=== PATIENT | male | born 1985 | race Caucasian/White ===

== ENCOUNTER 2019-06-22 14:48 | Inpatient (IN) | payer OTHER ==
[2019-06-22 16:38] VITALS: BMI 23.8
--- NOTE | 2019-06-22 18:29 | HP ---
CIWA Score Nausea/Vomitin-No Nausea/No Vomiting Muscle Tremors: 4-Moderate,w/Arms Extend Anxiety: 3 Agitation: 3 Paroxysmal Sweats: No Perspiration Orientation: 2-Disoriented Date<2 days Tacttile Disturbances: 0-None Auditory Disturbances: 0-None Visual Disturbances: 0-None Headache: 0-None Present CIWA-Ar Total Score: 12 - Admission Criteria OASAS Guidelines: Admission for Medically Managed Detox: Requires at least one of the followin. CIWA greater than 12 2. Seizures within the past 24 hours 3. Delirium tremens within the past 24 hours 4. Hallucinations within the past 24 hours 5. Acute intervention needed for co occurring medical disorder 6. Acute intervention needed for co occurring psychiatric disorder 7. Severe withdrawal that cannot be handled at a lower level of care (continued vomiting, continued diarrhea, abnormal vital signs) requiring intravenous medication and/or fluids 8. Admission ROS S - HPI Allergies/Adverse Reactions: Allergies Allergy/AdvReac Type Severity Reaction Status Date / Time No Known Allergies Allergy Verified 06/22/19 16:31 History of Present Illness: pt here requesting detox from etoh use , reports 1 bottle of vodka/day x 1 year , denies seizures, + tremors, + blackouts , latest use yesterday . pmhx : denies psych : denies SI / HI Exam Limitations: Clinical Condition - Ebola screening Have you traveled outside of the country in the last 21 days: No (N) Have you had contact with anyone from an Ebola affected area: No Do you have a fever: No - Review of Systems Constitutional: No Symptoms Reported EENT: reports: No Symptoms Reported Respiratory: reports: No Symptoms reported Cardiac: reports: No Symptoms Reported GI: reports: No Symptoms Reported : reports: No Symptoms Reported Musculoskeletal: reports: Other (reports injuries s/p falls , [place] w/ injury to right leg .) Integumentary: reports: See HPI, Other (bruising from falls.) Neuro: reports: Numbness (right Vth finger from remote injury - hit wall w/ elbow and has been having numbness since.), Paresthesia (r Vth finger), Tingling, Tremors, Unsteady Gait, Ataxia, Dizziness Endocrine: reports: No Symptoms Reported Hematology: reports: No Symptoms Reported Psychiatric: reports: Agitated, Anxious, Disorientated Patient History - Smoking Cessation Smoking history: Current every day smoker (vaping) Have you smoked in the past 12 months: Yes Hx Chewing Tobacco Use: No Initiated information on smoking cessation: No - Substances abused Alcohol Substance route: Oral Frequency: Daily Amount used: 1 liter of vodka Age of first use: 32 Date of last use: 06/21/19 Admission Physical Exam [facility] - Vital Signs Vital Signs: Vital Signs - 24 hr 06/22/19 16:31 Temperature 97.4 F L Pulse Rate 82 Respiratory 16 Rate Blood Pressure 146/85 - Physical General Appearance: Yes: Mild Distress, Anxious HEENTM: Yes: EOMI, Hearing grossly Normal, Normocephalic, Normal Voice Respiratory: Yes: Chest Non-Tender, Lungs Clear, Normal Breath Sounds, No Respiratory Distress, No Accessory Muscle Use Neck: Yes: No masses,lesions,Nodules, Trachea in good position Cardiology: Yes: Regular Rhythm, Regular Rate, S1, S2 Abdominal: Yes: Non Tender, Soft Musculoskeletal: Yes: Other (unsteady gait.) Extremities: Yes: Normal Range of Motion, Non-Tender, Tremors Neurological: Yes: Alert, Normal Mood/Affect, Confused Integumentary: Yes: Warm, Other (superficial excoriation right knee , right pretibially) - Diagnostic (1) Alcohol use disorder Current Visit: Yes Status: Chronic Breathalyzer - Breathalyzer Breathalyzer: 0.006 Urine Drug Screen - Test Device Lot number: [id number] Expiration date: 09/01/20 - Control Is test valid?: Yes - Results Drug screen NEGATIVE: No Urine drug screen results: BZO-Benzodiazepines Inpatient Rehab Admission - Rehab Decision to Admit Inpatient rehab admission?: No
[2019-06-22] MEDS ORDERED: ACETAMINOPHEN 325 MG TABLET (FP) PO PRN ×2 (18:34)
[2019-06-22] MEDS ORDERED: BISMUTH SUBSALICYLATE 524 MG/30 ML UD PO PRN (18:34)
[2019-06-22] MEDS ORDERED: MAG HYDROX/AL HYDROX/SIMETH 30 ML UNIT-DOSE CUP PO PRN (18:34)
[2019-06-22] MEDS ORDERED: MAGNESIUM HYDROX 2400MG/30ML ORAL SUSPENSION 30 ML CUP PO PRN (18:34)
[2019-06-22] MEDS ORDERED: MAGNESIUM CITRATE 300 ML BOTTLE PO PRN (18:34)
[2019-06-22] MEDS ORDERED: METHOCARBAMOL 500 MG TABLET PO PRN (18:34)
[2019-06-22] MEDS ORDERED: hydrOXYzine PAMOATE 25 MG CAPSULE (FP) PO PRN (18:34)
[2019-06-22] MEDS ORDERED: MENTHOL/PHENOL 1 EACH UD MM PRN (18:34)
[2019-06-22] MEDS ORDERED: IBUPROFEN 400 MG TABLET (FP) PO PRN (18:34)
[2019-06-22] MEDS ORDERED: chlordiazePOXIDE HCL 10 MG CAPSULE PO PRN (18:35)
[2019-06-22] MEDS ORDERED: chlordiazePOXIDE HCL 25 MG CAPSULE PO ONE (18:45)
[2019-06-22] MEDS: THIAMINE HCL 100 MG TABLET (FP) PO SCH (22:31)
[2019-06-22] MEDS: chlordiazePOXIDE HCL 25 MG CAPSULE PO SCH (22:31)
[2019-06-22] MEDS: MELATONIN 5 MG TABLETS PO PRN (22:32)
[2019-06-23] MEDS: chlordiazePOXIDE HCL 25 MG CAPSULE PO SCH ×3 (06:12→21:22)
[2019-06-23] MEDS: PRENATAL VITAMINS W/ FOLIC ACID TABLET (FP) PO SCH (10:15)
[2019-06-23 12:30] LABS: BILIRUBIN,TOTAL 0.8 mg/dL (0.2-1); BLOOD UREA NITROGEN 10.7 mg/dL (7-18); CALCIUM 9.5 mg/dL (8.5-10.1); CREATININE 0.8 mg/dL (0.55-1.3); POTASSIUM 3.6 mmol/L (3.5-5.1); TOT PROT 7.2 g/dl (6.4-8.2)
[2019-06-23 12:33] LABS: HEMATOCRIT 39.6 % (35.4-49); HEMOGLOBIN 13.6 GM/dL (11.7-16.9); MCH 31.9 pg (25.7-33.7); MCHC 34.2 g/dl (32.0-35.9); MEAN CELL VOLUME 93.4 fl (80-96); MEAN PLT VOLUME 8.9 fl (7.5-11.1); PLATELET COUNT 220 K/MM3 (134-434); RBC 4.25 M/mm3 (4.00-5.60); WHITE BLOOD COUNT 4.2 K/mm3 (4.0-10.0)
--- NOTE | 2019-06-23 13:13 | PN ---
[facility] CIWA - CIWA Score Nausea/Vomitin-No Nausea/No Vomiting Muscle Tremors: 3 Anxiety: 2 Agitation: 1-Slight > Activity Paroxysmal Sweats: 2 Orientation: 0-Oriented Tacttile Disturbances: 0-None Auditory Disturbances: 0-None Visual Disturbances: 1-Very Mild Sensitivity Headache: 1-Very Mild CIWA-Ar Total Score: 10 S Progress Note (SOAP) Subjective: 33 years old male admitted on 06/22/19 for alcohol withdrawal sx management treating wtih librium detox regimen feeling ok today ambulating on hallway ate breakfast and lunch in day room social with peers in day room Objective: 06/23/19 13:11 Vital Signs Temperature 96.7 F L 06/23/19 09:17 Pulse Rate 70 06/23/19 09:17 Respiratory Rate 18 06/23/19 09:17 Blood Pressure 127/90 06/23/19 09:17 O2 Sat by Pulse Oximetry (%) Laboratory Last Values WBC 4.2 K/mm3 (4.0-10.0) 06/23/19 07:25 RBC 4.25 M/mm3 (4.00-5.60) 06/23/19 07:25 Hgb 13.6 GM/dL (11.7-16.9) 06/23/19 07:25 Hct 39.6 % (35.4-49) 06/23/19 07:25 MCV 93.4 fl (80-96) 06/23/19 07:25 MCH 31.9 pg (25.7-33.7) 06/23/19 07:25 MCHC 34.2 g/dl (32.0-35.9) 06/23/19 07:25 RDW 13.0 % (11.9-15.9) 06/23/19 07:25 Plt Count 220 K/MM3 (134-434) 06/23/19 07:25 MPV 8.9 fl (7.5-11.1) 06/23/19 07:25 Sodium 142 mmol/L (136-145) 06/23/19 07:25 Potassium 3.6 mmol/L (3.5-5.1) 06/23/19 07:25 Chloride 105 mmol/L (98-107) 06/23/19 07:25 Carbon Dioxide 29 mmol/L (21-32) 06/23/19 07:25 Anion Gap 7 MMOL/L (8-16) L 06/23/19 07:25 BUN 10.7 mg/dL (7-18) 06/23/19 07:25 Creatinine 0.8 mg/dL (0.55-1.3) 06/23/19 07:25 Est GFR (CKD-EPI)AfAm 136.99 06/23/19 07:25 Est GFR (CKD-EPI)NonAf 118.20 06/23/19 07:25 Random Glucose 91 mg/dL (74-106) 06/23/19 07:25 Calcium 9.5 mg/dL (8.5-10.1) 06/23/19 07:25 Total Bilirubin 0.8 mg/dL (0.2-1) 06/23/19 07:25 AST 112 U/L (15-37) H 06/23/19 07:25 ALT 149 U/L (13-61) H 06/23/19 07:25 Alkaline Phosphatase 105 U/L (45-117) 06/23/19 07:25 Total Protein 7.2 g/dl (6.4-8.2) 06/23/19 07:25 Albumin 4.0 g/dl (3.4-5.0) 06/23/19 07:25 RPR Titer Nonreactive (NONREACTIVE) 06/23/19 07:25 lab noted ast elevation repeat ast 06/23/19 13:12 patient agrees to consider ativan detox regimen Assessment: 06/23/19 13:13 alcohol withdrawal Plan: librium regimen health teaching on alcohol related ast elevation
[2019-06-23] MEDS: THIAMINE HCL 100 MG TABLET (FP) PO SCH (21:22)
[2019-06-23] MEDS: MELATONIN 5 MG TABLETS PO PRN (21:23)
[2019-06-24] MEDS: chlordiazePOXIDE 5 MG CAPSULE PO SCH ×3 (05:20→22:09)
[2019-06-24] MEDS: PRENATAL VITAMINS W/ FOLIC ACID TABLET (FP) PO SCH (10:02)
[2019-06-24] MEDS ORDERED: chlordiazePOXIDE HCL 10 MG CAPSULE PO PRN (13:11)
--- NOTE | 2019-06-24 13:15 | PN ---
[facility] CIWA - CIWA Score Nausea/Vomitin-No Nausea/No Vomiting Muscle Tremors: 1-None Visible, but [place] Anxiety: 1-Mildly Anxious Agitation: 1-Slight > Activity Paroxysmal Sweats: 1-Minimal Palms Moist Orientation: 0-Oriented Tacttile Disturbances: 0-None Auditory Disturbances: 0-None Visual Disturbances: 0-None Headache: 1-Very Mild CIWA-Ar Total Score: 5 BHS Progress Note (SOAP) Subjective: 33 years old male admitted on 06/22/19 for alcohol withdrawal sx management treating with librium detox regiment ast elevation patient prefers not to take ativan regimen last dose librium regimen was 06/23/19 5 am due to low ciwa score patient can be discharged tomorrow for next level of chemical dependent care patient refuses aftercare as second option of [facility] patient prefers community support approach Objective: 06/24/19 13:19 Vital Signs Temperature 99.3 F 06/24/19 13:12 Pulse Rate 74 06/24/19 13:12 Respiratory Rate 16 06/24/19 13:12 Blood Pressure 130/76 06/24/19 13:12 O2 Sat by Pulse Oximetry (%) Laboratory Last Values WBC 4.2 K/mm3 (4.0-10.0) 06/23/19 07:25 RBC 4.25 M/mm3 (4.00-5.60) 06/23/19 07:25 Hgb 13.6 GM/dL (11.7-16.9) 06/23/19 07:25 Hct 39.6 % (35.4-49) 06/23/19 07:25 MCV 93.4 fl (80-96) 06/23/19 07:25 MCH 31.9 pg (25.7-33.7) 06/23/19 07:25 MCHC 34.2 g/dl (32.0-35.9) 06/23/19 07:25 RDW 13.0 % (11.9-15.9) 06/23/19 07:25 Plt Count 220 K/MM3 (134-434) 06/23/19 07:25 MPV 8.9 fl (7.5-11.1) 06/23/19 07:25 Sodium 142 mmol/L (136-145) 06/23/19 07:25 Potassium 3.6 mmol/L (3.5-5.1) 06/23/19 07:25 Chloride 105 mmol/L (98-107) 06/23/19 07:25 Carbon Dioxide 29 mmol/L (21-32) 06/23/19 07:25 Anion Gap 7 MMOL/L (8-16) L 06/23/19 07:25 BUN 10.7 mg/dL (7-18) 06/23/19 07:25 Creatinine 0.8 mg/dL (0.55-1.3) 06/23/19 07:25 Est GFR (CKD-EPI)AfAm 136.99 06/23/19 07:25 Est GFR (CKD-EPI)NonAf 118.20 06/23/19 07:25 Random Glucose 91 mg/dL (74-106) 06/23/19 07:25 Calcium 9.5 mg/dL (8.5-10.1) 06/23/19 07:25 Total Bilirubin 0.8 mg/dL (0.2-1) 06/23/19 07:25 AST 112 U/L (15-37) H 06/23/19 07:25 ALT 149 U/L (13-61) H 06/23/19 07:25 Alkaline Phosphatase 105 U/L (45-117) 06/23/19 07:25 Total Protein 7.2 g/dl (6.4-8.2) 06/23/19 07:25 Albumin 4.0 g/dl (3.4-5.0) 06/23/19 07:25 RPR Titer Nonreactive (NONREACTIVE) 06/23/19 07:25 lab noted patient agrees to follow up with his primary care provider in [facility] 06/24/19 13:19 Assessment: 06/24/19 13:20 alcohol withdrawal Plan: librium regimen
[2019-06-24] MEDS: THIAMINE HCL 100 MG TABLET (FP) PO SCH (22:09)
[2019-06-24] MEDS: MELATONIN 5 MG TABLETS PO PRN (22:09)
--- NOTE | 2019-06-24 23:25 | PN ---
S Progress Note Note: Ms. Mary Carmen Simmons RN called to report that patient PPD result is positive Vital Signs Temperature 97.2 F L 06/24/19 21:05 Pulse Rate 71 06/24/19 21:05 Respiratory Rate 16 06/24/19 21:05 Blood Pressure 144/93 06/24/19 21:05 O2 Sat by Pulse Oximetry (%) Action: Chest x-ray ordered
[2019-06-25] MEDS ORDERED: chlordiazePOXIDE HCL 10 MG CAPSULE PO PRN
[2019-06-25] MEDS ORDERED: chlordiazePOXIDE HCL 10 MG CAPSULE PO SCH (05:00)
[2019-06-25] MEDS ORDERED: chlordiazePOXIDE HCL 10 MG CAPSULE PO ONE (05:00)
[2019-06-25 06:21] VITALS: BP 136/91; PULSE 76; TEMP 96.9
--- NOTE | 2019-06-25 12:00 | DS ---
[facility] Detox Discharge Summary Admission Date: 06/22/19 Discharge Date: 06/25/19 - History Present History: Alcohol Dependence Additional Comments: 33 years old male admitted on 06/22/19 for alcohol withdrawal sx management treated with librium detox regiment patient has completed librium regimen and tolerated well alert oriented x 3 a positive PPD result noted today chest x ray was ordered patient is asymptomatic no night sweat no weight loss no coughing no shortness of breath case discussed with the nurse that patient refused to have chest x ray and refusal form was not signed by the patient obtained address of [address] [place] [address] positive PPD result will be sent to patient home respiratory clear lungs bilaterally on auscultation skin warm and dry abdomen soft flat no rebound tenderness - Physical Exam Results Vital Signs: Vital Signs Temperature 96.9 F L 06/25/19 06:20 Pulse Rate 76 06/25/19 06:20 Respiratory Rate 16 06/25/19 06:30 Blood Pressure 136/91 06/25/19 06:20 O2 Sat by Pulse Oximetry (%) Pertinent Admission Physical Exam Findings: alcohol withdrawal Laboratory Last Values WBC 4.2 K/mm3 (4.0-10.0) 06/23/19 07:25 RBC 4.25 M/mm3 (4.00-5.60) 06/23/19 07:25 Hgb 13.6 GM/dL (11.7-16.9) 06/23/19 07:25 Hct 39.6 % (35.4-49) 06/23/19 07:25 MCV 93.4 fl (80-96) 06/23/19 07:25 MCH 31.9 pg (25.7-33.7) 06/23/19 07:25 MCHC 34.2 g/dl (32.0-35.9) 06/23/19 07:25 RDW 13.0 % (11.9-15.9) 06/23/19 07:25 Plt Count 220 K/MM3 (134-434) 06/23/19 07:25 MPV 8.9 fl (7.5-11.1) 06/23/19 07:25 Sodium 142 mmol/L (136-145) 06/23/19 07:25 Potassium 3.6 mmol/L (3.5-5.1) 06/23/19 07:25 Chloride 105 mmol/L (98-107) 06/23/19 07:25 Carbon Dioxide 29 mmol/L (21-32) 06/23/19 07:25 Anion Gap 7 MMOL/L (8-16) L 06/23/19 07:25 BUN 10.7 mg/dL (7-18) 06/23/19 07:25 Creatinine 0.8 mg/dL (0.55-1.3) 06/23/19 07:25 Est GFR (CKD-EPI)AfAm 136.99 06/23/19 07:25 Est GFR (CKD-EPI)NonAf 118.20 06/23/19 07:25 Random Glucose 91 mg/dL (74-106) 06/23/19 07:25 Calcium 9.5 mg/dL (8.5-10.1) 06/23/19 07:25 Total Bilirubin 0.8 mg/dL (0.2-1) 06/23/19 07:25 AST 102 U/L (15-37) H 06/24/19 08:15 ALT 149 U/L (13-61) H 06/23/19 07:25 Alkaline Phosphatase 105 U/L (45-117) 06/23/19 07:25 Total Protein 7.2 g/dl (6.4-8.2) 06/23/19 07:25 Albumin 4.0 g/dl (3.4-5.0) 06/23/19 07:25 RPR Titer Nonreactive (NONREACTIVE) 06/23/19 07:25 lab noted - Treatment Hospital Course: Detox Protocol Followed, Detoxed Safely, Responded well, Discharged Condition Good, Rehab Referral Accepted Patient has Accepted a Re[facility] Referral to: [facility] - Medication Discharge Medications: Ambulatory Orders NK [No Known Home Medication] 06/22/19 - Diagnosis (1) Alcohol dependence with withdrawal, uncomplicated Status: Acute (2) Positive PPD Status: Suspected - AMA Did Patient Leave Against Medical Advice: No CIWA Score - CIWA Score Nausea/Vomitin-No Nausea/No Vomiting Muscle Tremors: 1-None Visible, but [place] Anxiety: 0-No Anxiety, at Ease Agitation: 0-Normal Activity Paroxysmal Sweats: 1-Minimal Palms Moist Orientation: 0-Oriented Tacttile Disturbances: 0-None Auditory Disturbances: 0-None Visual Disturbances: 0-None Headache: 0-None Present CIWA-Ar Total Score: 2
[2019-06-26] MEDS ORDERED: chlordiazePOXIDE HCL 10 MG CAPSULE PO ONE (05:00)
== END 2019-06-25 09:16 | disposition home or self-care (01) | DRG 775 ==
LOC: YASAS 14:48 → Y3N 18:24
PROVIDERS: ADMIT Allergy & Immunology; ATTEND Allergy & Immunology
PROC: HZ2ZZZZ Detoxification Services for Substance Abuse Treatment (ICD-10-PCS; principal; 2019-06-22)
DX: F10.230 Alcohol dependence with withdrawal, uncomplicated (principal); F17.290 Nicotine dependence, other tobacco product, uncomplicated; R76.11 Nonspecific reaction to tuberculin skin test without active tuberculosis
CPT/HCPCS: 36415; 80053; 84450; 85027; 86593